=== PATIENT | male | born 1960 ===

== ENCOUNTER 2020-07-30 06:30 | Day surgery (SDC) | payer OTHER ==
[~2020-07-30 06:30] MED LIST: ADULT LOW DOSE81 M1 PO; CELLCEPT500 MG PO; LABETALOL HCL100 MG PO; LOSAR PO; NASAL MIST126 ML; NORVASC5 MG PO; PREDNISONE PO; PROAIR RESPICL90 MCG; PROGRAFT PO; SYMBICORT 16010.2 GM; SYNTHROID88 MCG PO; [UNRECOGNIZED DRUG - OTHER] PO
== END 2020-07-30 16:00 | disposition home or self-care (01) ==
LOC: CIR.AMB 06:30
PROVIDERS: ATTEND Colon & Rectal Surgery
DX: K64.8 Other hemorrhoids (principal); K64.4 Residual hemorrhoidal skin tags; Z20.822 Contact with and (suspected) exposure to COVID-19